=== PATIENT | male | born 1965 | race American Indian/Alaskan Native ===

== ENCOUNTER 2017-04-13 01:55 | Emergency (ER) | payer OTHER ==
[2017-04-13] MEDS ORDERED: FUL-GLO OP ONE (05:02)
--- NOTE | 2017-04-13 05:02 | Emergency Department Report ---
[facility] Chief Complaint: Eye Problems Stated Complaint: BILATERAL EYE IRRITATION Time Seen by Provider: 04/13/17 04:44 Side: Bilateral Severity: moderate Symptoms: Yes Eye Itching, Yes Eye Redness, Yes Mucous Drainage, No Purulent Drainage, No Blurred Vision, No Preceding URI, No H/O Allergic Rhinitis, No Contact Lens Use, No Trauma, No Fever, No Headache Other History: 51-year-old male past medical history hypertension presents with approximately 6-7 days of bilateral eye irritation conjunctival redness and foreign body sensation. Patient states that dust blew into his eyes approximate 6 days ago and he has had progressive watery tearing from I slight mucoid discharge and irritation in both eyes slightly worse on left than right. Patient's overall vision is intact denies contact lens use. Denies fever or chills. ED Review of Systems ROS: Stated complaint: BILATERAL EYE IRRITATION Other details as noted in HPI Constitutional: denies: chills, fever Eyes: eye pain, vision change (blurry vision left eye worsenign x6 days). denies: eye discharge ENT: denies: ear pain, throat pain Respiratory: denies: cough, shortness of breath, wheezing Cardiovascular: denies: chest pain, palpitations Endocrine: no symptoms reported Gastrointestinal: denies: abdominal pain, nausea, diarrhea Genitourinary: denies: urgency, dysuria Musculoskeletal: denies: back pain, joint swelling, arthralgia Skin: denies: rash, lesions Neurological: denies: headache, weakness, paresthesias Psychiatric: denies: anxiety, depression Hematological/Lymphatic: denies: easy bleeding, easy bruising ED Past Medical Hx - Past Medical History Previous Medical History?: No - Surgical History Past Surgical History?: No - Social History Smoking Status: Current Every Day Smoker Substance Use Type: Alcohol - Medications Home Medications: Home Medications Medication Instructions Recorded Confirmed Last Taken Type Pilocarpine 2% [Isopto Carpine] 1 drops OU ONCE #1 bottle 04/13/17 Unknown Rx Timolol 0.5% [Timoptic] 1 drops OP BID #1 bottle 04/13/17 Unknown Rx Tobramycin 0.3% [Tobrex] 1 drop OD Q4H #1 bottle 04/13/17 Unknown Rx [facility] Exam - Exam General: Vital signs noted. No distress. Alert and acting appropriately. Eye Exam: Left Injection, Left Chemosis, Left Fluorescein Uptake, Both EOMI, Neither Eye Foreign Body, Neither Lid Foreign Body HEENT: No Nasal Congestion, No Pharyngeal Erythema Lungs: Yes Clear Lung Sounds, Yes Good Air Exchange, No Wheezes, No Stridor, No Cough, No Nasal Flaring, No Retractions, No Use of Accessory Muscles ED Course Vital Signs 04/13/17 02:28 Temperature 98.3 F Pulse Rate 77 Respiratory 20 Rate Blood Pressure 165/104 O2 Sat by Pulse 98 Oximetry ED Medical Decision Making - Medical Decision Making A/P: Concern for increased intraocular pressure, possible acute angle glaucoma 1-case discussed with Dr. Lopez on-call fiction and nonfiction writer prose at [facility] as per our discussion I will give patient pilocarpine and some low drops immediately and immediately discharge patient to follow up with Dr. Lopez urgently within the next 1-2 hours. Patient agrees verbally that upon discharge he will immediately go to Dr. Lopez's eye clinic on [address] [facility]. I provided the patient with directions and direct contact information for Dr. Lopez so that he can receive full ophthalmologic evaluation. As per Dr. Lopez if patient is found to have acutely elevated intraocular pressure upon his examination he can immediately treat acute angle glaucoma and office with his equipment. The patient agrees to immediately go to Dr. Lopez's office upon discharge, this conversation was witnessed by inspector general Yara. 2-I informed of the clinical plan before discharge 3-I gave patient prescription's instructions and gave him bottles of pilocarpine and timolol as instructed by Dr. Lopez 4- further management to be continued by Dr. Lopez upon evaluation upon arrival of the patient to his office Critical care attestation.: If time is entered above; I have spent that time in minutes in the direct care of this critically ill patient, excluding procedure time. 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 Lopez's eye clinic on [address] [facility] [facility] [facility] [address] Patient understood the instructions and agreed to go directly there upon discharge to be evaluated by on-call fiction and nonfiction writer prose Dr. Lopez. Patient given instructions on how to use pilocarpine drops and atenolol drops. Patient given instructions on dosing. Prescriptions: Pilocarpine 2% [Isopto Carpine] 1 drops OU ONCE #1 bottle Timolol 0.5% [Timoptic] 1 drops OP BID #1 bottle Tobramycin 0.3% [Tobrex] 1 drop OD Q4H #1 bottle Referrals: SHEY LOPEZ MD [Staff Physician] - 3-5 Days [facility] [Provider Group] - 3-5 Days Forms: Work/School Release Form(ED) Time of Disposition: 06:12
[2017-04-13] MEDS ORDERED: TIMOPTIC OU ONE (06:00)
[2017-04-13] MEDS ORDERED: ISOPTO CARPINE OU ONE (06:00)
[2017-04-13 06:30] VITALS: BP 179/110
== END 2017-04-13 06:35 | disposition home or self-care (01) ==
LOC: ED 01:55
DX: H40.052 Ocular hypertension, left eye (principal); H57.12 Ocular pain, left eye; F17.200 Nicotine dependence, unspecified, uncomplicated

== ENCOUNTER 2017-06-16 00:17 | Inpatient (IN) | payer SELFPAY ==
[2017-06-16] MEDS ORDERED: NACL 0.9% 1000 ML 1,000 ML IV ONE (00:20)
[2017-06-16] MEDS ORDERED: HEPARIN 10,000 UNITS/10 ML IV ONE (00:20)
[2017-06-16] MEDS ORDERED: BRILINTA PO ONE (00:21)
[2017-06-16] MEDS ORDERED: HEPARIN ONE (00:22)
[2017-06-16] MEDS ORDERED: HEPARIN/ 0.45% NACL-25,000 UNIT/500 ML 25,000 UNIT/500 ML BAG ONE (00:22)
[2017-06-16] MEDS ORDERED: PLAVIX ONE (00:23)
--- NOTE | 2017-06-16 00:26 | Emergency Department Report ---
HPI - General Time Seen by Provider: 06/16/17 00:20 - HPI HPI: 51-year-old male presents to the emergency department by EMS from home with complaint of midsternal chest pain/pressure has been going on for about the last hour. He is a tobacco smoker but otherwise denies any medical conditions. He does not have a primary care physician or chainstitch zipper setter. He received a full dose aspirin in route with EMS. EMS sent and a EKG that showed concern for septal and/or anterior ST elevation AZ and a code STEMI was called. Patient says he's been dealing with a chest cold for the past week and has been taking NyQuil for her. ED Past Medical Hx - Social History Smoking Status: Current Every Day Smoker Substance Use Type: Alcohol - Medications Home Medications: Home Medications Medication Instructions Recorded Confirmed Last Taken Type Pilocarpine 2% [Isopto Carpine] 1 drops OU ONCE #1 bottle 04/13/17 Unknown Rx Timolol 0.5% [Timoptic] 1 drops OP BID #1 bottle 04/13/17 Unknown Rx Tobramycin 0.3% [Tobrex] 1 drop OD Q4H #1 bottle 04/13/17 Unknown Rx ED Review of Systems ROS: Stated complaint: STEMI Other details as noted in HPI Comment: All other systems reviewed and negative Constitutional: chills. denies: fever Eyes: denies: eye pain, eye discharge, vision change ENT: denies: ear pain, throat pain Respiratory: denies: cough, shortness of breath Cardiovascular: chest pain. denies: palpitations Gastrointestinal: denies: abdominal pain, vomiting Genitourinary: denies: urgency, dysuria Musculoskeletal: denies: back pain, joint swelling, arthralgia Skin: denies: rash, lesions Neurological: denies: headache, weakness, paresthesias Physical Exam - Physical Exam Physical Exam: GENERAL: The patient is well-developed well-nourished. HENT: Normocephalic. Atraumatic. Patient has moist mucous membranes. EYES: Extraocular motions are intact. Pupils equal reactive to light bilaterally. NECK: Supple. Trachea is midline. CHEST/LUNGS: Clear to auscultation. There is no respiratory distress noted. HEART/CARDIOVASCULAR: Regular. There is no tachycardia. There is no murmur. ABDOMEN: Abdomen is soft, nontender. Patient has normal bowel sounds. There is no abdominal distention. SKIN: Skin is warm and dry. NEURO: The patient is awake, alert, and oriented. The patient is cooperative. The patient has no focal neurologic deficits. The patient has normal speech. MUSCULOSKELETAL: There is no tenderness or deformity. There is no limitation range of motion. There is no evidence of acute injury. ED Course - Consultations Consultation #1: I spoke to the consular officer mail distribution clerk, Dr. Watson, who is aware of the concern for ST elevation AZ and is on his way in to bring the patient to the [facility]. 06/16/17 00:25 ED Medical Decision Making - Lab Data Result diagrams: 06/16/17 00:23 - EKG Data -: EKG Interpreted by Me EKG shows normal: sinus rhythm, axis, intervals, QRS complexes, ST-T waves ( there is ST elevations in 2 leads V1 and V2 with reciprocal depressions to the inferior leads concerning for a septal and/or anterior AZ) Rate: normal - EKG Data When compared to previous EKG there are: previous EKG unavailable Interpretation: acute AZ - Radiology Data Radiology results: image reviewed interpreted by me: Chest x-ray does not show any acute process. There are no pleural effusions, obvious pneumonia and there is no pneumothorax. - Medical Decision Making Patient presented with an EKG that appeared consistent with a anterior AZ and this was confirmed with EKG done here. He was given Plavix and heparin bolus and drip. Chest x-ray does not show any acute process. Labs are starting to come back. The patient has been transported over to the [facility] and then will be admitted to the ICU by either the cardiology service or the hospitalist. Vital signs stable with some hypertension. - Differential Diagnosis AZ, costochondritis, PE, pneumonia Critical Care Time: Yes Critical care time in (mins) excluding proc time.: 20 Critical care attestation.: If time is entered above; I have spent that time in minutes in the direct care of this critically ill patient, excluding procedure time. Critical care time spent on this patient during his initial evaluation, reevaluation, ordering and interpretations of labs and EKG and imaging, discussion with the chainstitch zipper setter and discussion with the patient himself. Critical Care Time: 20 minutes ED Disposition Clinical Impression: Acute coronary syndrome STEMI (ST elevation myocardial infarction) Qualifiers: Involved coronary artery: unspecified coronary artery Qualified Code(s): I21.3 - ST elevation (STEMI) myocardial infarction of unspecified site Chest pain Qualifiers: Chest pain type: unspecified Qualified Code(s): R07.9 - Chest pain, unspecified Hypertension Qualifiers: Hypertension type: essential hypertension Qualified Code(s): I10 - Essential ( primary) hypertension Disposition: OP ADMIT IP TO THIS HOSP Is pt being admited?: Yes Condition: Fair Instructions: Chest Pain (ED), Hypertension (ED) Time of Disposition: 00:52
[2017-06-16] MEDS ORDERED: PLAVIX PO ONE (00:30)
[2017-06-16 00:34] LABS: Hematocrit 47.8 % (35.5-45.6); Hemoglobin 16.1 gm/dl (11.8-15.2); Mean Corpuscular HGB Conc 34 % (32-34); Mean Corpuscular Hemoglobin 29 pg (28-32); Mean Corpuscular Volume 86 fl (84-94); Platelet Count 150 K/mm3 (140-440); Red Blood Count 5.57 M/mm3 (3.65-5.03); Red Cell Distribution Width 14.5 % (13.2-15.2); White Blood Count 8.2 K/mm3 (4.5-11.0)
[2017-06-16 00:44] LABS: INR 0.87 (0.87-1.13)
[2017-06-16 00:45] LABS: Partial Thromboplastin Time 27.6 Sec. (24.2-36.6)
[2017-06-16 00:51] LABS: Alanine Aminotransferase 42 units/L (7-56); Albumin 4.7 g/dL (3.9-5); Albumin/Globulin Ratio 1.6 %; Alkaline Phosphatase 75 units/L (35-129); Anion Gap 24 mmol/L; BUN/Creatinine Ratio 11; Blood Urea Nitrogen 14 mg/dL (9-20); Calcium 9.8 mg/dL (8.4-10.2); Carbon Dioxide 21 mmol/L (22-30); Chloride 100.1 mmol/L (98-107); Glucose 93 mg/dL (75-100); Potassium 3.7 mmol/L (3.6-5.0); Sodium 141 mmol/L (137-145); Total Protein 7.6 g/dL (6.3-8.2)
[2017-06-16] MEDS ORDERED: HEPARIN 10,000 UNITS/10 ML ONE (00:54)
[2017-06-16] MEDS ORDERED: XYLOCAINE 2% INFILTRATI ONE (00:54)
[2017-06-16] MEDS ORDERED: HEPARIN/NS 5000 UNIT/500ML(CATH LAB) 1,500 ML IR ONE (00:54)
[2017-06-16] MEDS ORDERED: NITROGLYCERIN SYRINGE 0 ML ONE (00:54)
[2017-06-16] MEDS ORDERED: CALAN ONE ×2 (00:54→01:09)
[2017-06-16] MEDS ORDERED: NACL 0.9% 1000 ML 1,000 ML ONE (00:55)
[2017-06-16] MEDS ORDERED: VERSED ONE (00:55)
[2017-06-16] MEDS ORDERED: SUBLIMAZE ONE (00:55)
[2017-06-16] MEDS ORDERED: HEPARIN/ 0.45% NACL-25,000 UNIT/500 ML 25,000 UNIT/500 ML BAG IV SCH (01:00)
[2017-06-16] MEDS ORDERED: TRIDIL DRIP 50MG/250ML 50 MG/250 ML BOTTLE ONE (01:09)
[2017-06-16] MEDS ORDERED: TRIDIL DRIP 50MG/250ML 50 MG/250 ML BOTTLE IV ONE (01:37)
[2017-06-16] MEDS ORDERED: COZAAR PO ONE (01:54)
--- NOTE | 2017-06-16 01:54 | XRay Report ---
FINAL REPORT EXAM: XR CXR CLINICAL INDICATIONS: CP FINDINGS: Single frontal view of the chest was acquired. The heart is normal in size. There is some left basilar linear scar versus atelectasis, but otherwise the lungs appear clear. The pulmonary vasculature is within normal limits. IMPRESSION: LEFT LATERAL BASILAR LINEAR SCAR VERSUS ATELECTASIS. OTHERWISE, NO ACTIVE DISEASE IN THE CHEST
[2017-06-16] MEDS ORDERED: NACL 0.9% 1000 ML 1,000 ML IV SCH (02:00)
[2017-06-16] MEDS ORDERED: ATIVAN IV ONE (02:23)
[2017-06-16 03:17] LABS: Basophils % (Manual) 0 % (0.0-1.8); Blastocytes % (Manual) 0 %; Eosinophils % (Manual) 0 % (0.0-4.3)
[2017-06-16 03:19] LABS: Anisocytosis 1+; Diff Status Complete; Platelet Estimate Consistent w Auto
--- NOTE | 2017-06-16 03:38 | History and Physical Report ---
CARDIOLOGY CONSULTATION HISTORY OF PRESENT ILLNESS: The patient is a 51-year-old -[place] gentleman who is having chest pains at least for last 1 week and probably more and he is planning to come to the doctor for last one week; however, this evening while he went to his brother's house, when driving back, he started having anterior chest pain associated with nausea, shortness of breath. It was severe. Hence, paramedics were called and EKG was performed, which shows sinus rhythm and mild ST elevations of 1 mm in V1 and V2 with minor ST-T changes in the inferolateral leads consistent with acute injury. Hence, the patient was brought to the catheterization laboratory on an emergency basis as a part of the STEMI protocol. Subsequently, he underwent cardiac catheterization, which revealed a small apical infarct; however, anterior wall and septum are moving very well with normal ejection fraction. The patient was noted to have severe lesions in the LAD, diagonal and RCA; however, MADAY 3 flow noted in all the vessels. Considering wall motion was normal and MADAY 3 flow was noted and lesions are complex for intervention, it was decided to try aggressive medical therapy. The patient's symptoms markedly improved after starting IV nitroglycerin in the Emergency Room and blood pressure is improved. His chest pain is markedly improved. It was decided to continue medical therapy and consider aortocoronary bypass surgery. The patient will be admitted to CCU with treatment for acute coronary syndrome. The patient was not on any medical therapy in the past. No history of hypertension or diabetes mellitus. He is not taking any medications except some medication for cold recently. ALLERGIES: None known. SOCIAL HISTORY: He smokes 5-6 cigarettes for last many years and also drinks beer and liquor. Does not use any drugs. The patient lives with his irish for last 9 years and he says he has 12 children and 31 grandchildren. The patient works for a [employer] company and he has injury to the left arm, presently on disability. REVIEW OF SYSTEMS: The patient is having chest pains for the last many months, it was last 1 week and severe at the time of presentation. Denied any history of hypertension, diabetes mellitus, pulmonary or renal problems. No history of strokes or seizures. No history of pulmonary emboli. No history of DVT. Denied any fever, cough, and chills. No changes in the bowel habits. PHYSICAL EXAMINATION: GENERAL: The patient complaining of chest pain. VITAL SIGNS: Blood pressure is 170/116. The patient is in mild sinus tachycardia. The patient was started on IV heparin and IV nitroglycerin. NECK: Supple, no JVD. HEART: Regular, probably S4, no S3, no significant murmurs. LUNGS: Clear. ABDOMEN: Benign. EXTREMITIES: Without edema. NEUROLOGIC: Alert, oriented x 3. FINAL IMPRESSION: 1. Acute coronary syndrome with very mild ST elevations in leads V1 and V2 and coronary angiography showing very good LV function with no wall motion abnormalities in the area of LAD, septum and anterior wall are moving well. Ejection fraction is preserved with small apical infarct. However, the patient also was noted to have chronic disease in the RCA with collaterals from the LCA. At this time, plan is to continue aggressive medical therapy considering patient has MADAY 3 flow and consider revascularization by Surgery. 2. Hypertension, undiagnosed. 3. Chronic smoking. 4. Alcohol use. At this time, the patient is hemodynamically stable. Blood pressure is elevated. He will be continued on aspirin, IV heparin, IV nitroglycerin in addition to starting on beta cassandra and losartan and atorvastatin 80 mg a day. We will hold off Plavix or other antiplatelet agents except for aspirin with the view the patient is going to be sent for bypass surgery. 5. The patient's chest pain markedly improved . Blood pressure is better controlled. The patient will be monitored in CCU. I discussed with the patient's . JOB# [id number] JACE/GONZÁLEZ YORK
--- NOTE | 2017-06-16 06:03 | Cardiac Catherization Report ---
CARDIAC CATHETERIZATION CLINICAL INFORMATION: The patient is a 51-year-old -[place] gentleman with no previous cardiac history, started having severe chest pain prior to coming to the Emergency Room. EKG showed mild [address] elevations in leads V1 and V2 with Q-waves in the same leads. Also, mild ST depressions noted in the inferolateral leads. These are suggestive of acute injury, hence brought to the catheterization laboratory on an emergency basis. History is obtained from the patient and his fiancee, who she is living with for last 9 years. The patient started having severe chest pains for last 1 week, even though he is having some chest pains before the pains. The patient is planning to see doctor for the last one week, but did not see him and today, the pain is worse, hence paramedics were called and the above EKG changes were noted. Hence brought to the catheterization as a part of the STEMI protocol. DESCRIPTION OF PROCEDURE: The patient was taken to the catheterization laboratory on an emergency basis, prepared in a standard fashion with cleaning the right wrist and right groin using chlorhexidine solution and sterile drapes were applied. The patient was sedated with IV Versed and fentanyl. Right radial artery puncture was made using 21-gauge arterial puncture needle. 6-Wallisian sheath was introduced. The patient received 5 mg of intra-arterial verapamil and 3000 units of intravenous heparin. The patient is already on IV heparin. Subsequently, underwent coronary angiography and left ventriculogram. Left coronary angiograms were obtained using EBU 6-Wallisian guiding catheter and right coronary angiography was performed using JR4 guiding catheter. Subsequently, left ventriculogram was performed using hand injection with the JR4 guiding catheter. At the end of the procedure, catheter and sheath were removed. Following findings were noted: Left ventriculogram done in QUINN and AZERI projection shows brisk movement of entire anterior wall septum and mild hypokinesis of the inferior wall, along with small area of akinesis in the apex. Overall, ejection fraction was felt to be around 55% to 60%. Mitral regurgitation could not be evaluated. LEFT CORONARY ARTERY: Arises normally from left coronary cusp. Left main is very short, immediately dividing into LAD and circumflex. LAD shows smooth severe narrowing starting at the proximal LAD extending into the mid LAD involving origin of medium sized diagonal branch. This lesion is severe sometimes reaching in certain areas to 90% in severity in diameter. Mid LAD and distal LAD, large vessel curving around at the apex without significant disease. Diagonal branch itself is medium sized vessel without significant disease. MADAY 3 flow was noted in all the vessels. Circumflex artery showed a marginal branch, which showed 50% smooth lesion at the ostium. This is right dominant vessel. Right coronary artery arises normally from right coronary cusp. However, there is a very severe irregular lesion approaching 80% to 90% involving the proximal, mid, and distal LAD. However, the distal RCA, PDA and LV branches are seen filling retrograde on LCA injection. FINAL IMPRESSION: 1. Normal sized left ventricle with normal contractility with small apical infarct except for small apical akinesis. Rest of the ventricle is moving very well. Ejection fraction is preserved. 2. Severe lesions in the proximal and mid LAD involving the origin of diagonal branch in addition to excellent collaterals to the distal dominant RCA on LCA injection and long severe lesion in the proximal and mid RCA. There is 50% lesion in the marginal branch. At this time, the patient is presenting with acute coronary syndrome with mild ST changes considering the patient has MADAY 3 flow along with normal wall motion abnormality in the septum and anterior wall and considering the complex anatomy, it was felt the patient would better be served by revascularization with surgery. However, we will stabilize him with aggressive medical therapy. He is not on any medical therapy. His blood pressure is not under control. While in the catheterization laboratory, his pain markedly improved with IV heparin and IV nitroglycerin. His blood pressure also improved. The patient will be monitored closely in the CCU and will be transferred for aortocoronary bypass surgery on an elective basis. Findings were explained to the patient and , they understand. JOB# [id number] JACE/GONZÁLEZ YORK
[2017-06-16] MEDS ORDERED: LOPRESSOR PO SCH (10:00)
[2017-06-16] MEDS ORDERED: ECOTRIN PO SCH (10:00)
[2017-06-16] MEDS ORDERED: Fluarix Quad 2017-2018(36 MOS+ IM ONE (12:00)
--- NOTE | 2017-06-16 12:09 | Consultation ---
History of Present Illness Consult date: 06/16/17 Requesting physician: MAUREEN BAKER Reason for consult: other (STEMI) History of present illness: PULMONARY/CCM CONSULT NOTE (Full dictation # ) Please see dictated notes for full details Medications and Allergies Allergies Allergy/AdvReac Type Severity Reaction Status Date / Time No Known Allergies Allergy Verified 04/13/17 02:28 Home Medications Medication Instructions Recorded Confirmed Last Taken Type Pilocarpine 2% [Isopto Carpine] 1 drops OU ONCE #1 bottle 04/13/17 06/16/17 2 Days Ago Rx ~06/14/17 Timolol 0.5% [Timoptic] 1 drops OP BID #1 bottle 04/13/17 06/16/17 2 Days Ago Rx ~06/14/17 Tobramycin 0.3% [Tobrex] 1 drop OD QHS 06/16/17 06/16/17 2 Days Ago History ~06/14/17 Active Meds: Active Medications Aspirin (Ecotrin) 325 mg PO QDAY TEA Last Admin: 06/16/17 09:14 Dose: 325 mg Atorvastatin Calcium (Lipitor) 80 mg PO QHS [facility] Heparin Sodium/Sodium Chloride (Heparin/ 0.45% Nacl-25,000 Unit/500 Ml) 25,000 unit in 500 mls @ 20 mls/hr IV TITRATE TEA; 1,000 UNITS/HR PRN Reason: Protocol Last Titration: 06/16/17 11:20 Dose: 900 units/hr, 18 mls/hr Nitroglycerin/Dextrose (Tridil Drip 50mg/250ml) 50 mg in 250 mls @ 3 mls/hr IV TITR ONE; 10 MCG/MIN PRN Reason: Protocol Stop: 06/19/17 12:56 Last Titration: 06/16/17 03:25 Dose: 20 mcg/min, 6 mls/hr Sodium Chloride (Nacl 0.9% 1000 Ml) 1,000 mls @ 100 mls/hr IV DIRECT TEA Last Admin: 06/16/17 04:56 Dose: 100 mls/hr Metoprolol Tartrate (Lopressor) 50 mg PO BID TEA Last Admin: 06/16/17 09:14 Dose: 50 mg Physical Examination Vital signs: Vital Signs Pulse Resp 83 26 H 06/16/17 00:16 06/16/17 00:16 Results - Laboratory Findings CBC and BMP: 06/16/17 00:23 06/16/17 00:23 PT/INR, D-dimer PT 12.3 Sec. (12.2-14.9) 06/16/17 00:23 INR 0.87 (0.87-1.13) 06/16/17 00:23 Abnormal lab findings: Abnormal Labs 06/16/17 06/16/17 06/16/17 00:23 00:23 05:46 RBC 5.57 H Hgb 16.1 H Hct 47.8 H Lymphocytes % (Manual) 37.0 H Monocytes % (Manual) 10.0 H Heparin Anti-Xa Level Carbon Dioxide 21 L Troponin T 6.340 H* D 06/16/17 05:46 RBC Hgb Hct Lymphocytes % (Manual) Monocytes % (Manual) Heparin Anti-Xa Level 0.71 H Carbon Dioxide Troponin T
[2017-06-16 14:48] VITALS: BP 139/95
--- NOTE | 2017-06-16 14:52 | Progress Note ---
Assessment and Plan Acute coronary syndrome with TIMI3 flow in LAD,dx and RCA with severe LAD/ dominant RCA disease with preserved EF and small apical akinesis. Consodering extent of CAD,was recommended CABG electively,stabilized with medical therapy. Being transferred to [facility] for CABG, who accepted patient.Discussed withpatient and fiance,aggreable with plan. Subjective Date of service: 06/16/17 Principal diagnosis: acute coronary syndrome Interval history: Patient without chest pain,on iv NTG and iv heparin,in addition to B cassandra.c/ o of pain at radial site. Objective Vital Signs Temp Pulse Resp Resp BP Pulse Ox 06/16/17 12:23 98.1 F 06/16/17 12:21 93 H 21 144/85 96 06/16/17 12:11 90 144/85 97 06/16/17 12:01 97 H 17 144/85 96 06/16/17 12:00 98.1 F 98 06/16/17 11:51 102 H 19 146/89 96 06/16/17 11:41 90 11 L 146/89 97 06/16/17 11:31 93 H 10 L 146/89 96 06/16/17 11:21 90 14 146/89 97 06/16/17 11:11 102 H 13 146/89 95 06/16/17 11:01 96 H 20 146/89 95 06/16/17 10:51 109 H 20 147/87 95 06/16/17 10:41 94 H 20 147/87 96 06/16/17 10:31 81 17 147/87 97 06/16/17 10:21 86 17 147/87 99 06/16/17 10:11 78 18 147/87 98 06/16/17 10:01 80 9 L 147/87 96 06/16/17 10:00 99 06/16/17 09:51 94 H 18 131/84 97 06/16/17 09:41 72 15 131/84 99 06/16/17 09:31 80 20 131/84 96 06/16/17 09:21 76 19 150/98 94 06/16/17 09:14 82 150/98 06/16/17 09:11 80 12 150/98 97 06/16/17 09:00 68 14 159/86 97 06/16/17 08:51 93 H 13 131/84 99 17 08:41 81 15 131/84 98 1617 08:31 93 H 13 131/84 98 17 08:21 97 H 15 131/84 98 1617 08:11 87 16 131/84 98 17 08:01 92 H 9 L 131/84 98 1617 08:00 98.1 F 06/16/17 07:58 100 17 07:51 87 17 140/87 98 17 07:41 95 H 21 140/87 98 17 07:31 92 H 12 140/87 97 17 07:21 87 12 140/87 99 17 07:11 86 16 140/87 97 17 07:01 89 17 140/87 96 06/16/17 07:00 87 12 140/87 99 06/16/17 06:51 97 H 19 148/88 93 17 06:41 86 17 148/88 97 17 06:31 87 16 148/88 97 17 06:30 18 99 06/16/17 06:21 83 17 148/88 97 1617 06:11 86 20 159/86 97 17 06:01 93 H 14 159/86 98 17 06:00 81 18 159/86 99 06/16/17 05:51 92 H 16 159/86 97 1617 05:41 89 17 159/86 98 17 05:31 93 H 17 159/86 96 17 05:21 87 16 159/86 97 17 05:11 83 17 159/86 97 06/16/17 05:01 92 H 20 159/86 96 17 04:51 99 H 22 159/86 96 06/16/17 04:50 98.0 F 81 18 163/99 99 1617 04:41 80 16 163/99 99 1617 04:31 82 16 163/99 98 1617 04:21 83 17 157/100 97 1617 04:20 81 17 163/99 97 17 04:11 84 19 157/100 97 06/16/17 04:01 100 H 14 157/100 97 06/16/17 03:51 88 15 163/99 98 06/16/17 03:50 81 17 163/99 97 06/16/17 03:41 81 17 163/99 97 06/16/17 03:31 87 17 163/99 97 06/16/17 03:21 89 14 152/97 93 06/16/17 03:20 97.9 F 81 17 163/99 97 06/16/17 03:11 90 16 155/96 96 06/16/17 03:07 96 H 155/96 06/16/17 03:01 90 15 155/96 97 06/16/17 03:00 20 99 06/16/17 02:51 90 14 159/96 96 06/16/17 02:50 81 17 163/99 97 06/16/17 02:41 88 15 96 06/16/17 02:38 90 12 97 06/16/17 02:35 81 17 163/99 97 06/16/17 02:20 97.9 F 81 17 163/99 97 06/16/17 00:42 18 100 06/16/17 00:41 81 20 170/104 100 06/16/17 00:40 89 17 170/104 99 06/16/17 00:39 82 24 170/104 100 06/16/17 00:37 89 14 170/104 100 06/16/17 00:35 87 14 170/104 100 06/16/17 00:33 95 H 16 170/104 100 06/16/17 00:31 84 19 170/104 100 06/16/17 00:30 84 22 170/104 99 06/16/17 00:29 85 29 H 155/122 100 06/16/17 00:27 89 18 100 06/16/17 00:25 80 20 100 06/16/17 00:24 98 F 83 18 170/104 100 06/16/17 00:23 89 22 100 06/16/17 00:21 78 25 H 100 06/16/17 00:19 75 21 100 06/16/17 00:18 87 21 99 06/16/17 00:16 83 26 H - Physical Examination General: Appears Well, No Apparent Distress HEENT: Positive: PERRL Neck: Positive: neck supple, trachea midline Cardiac: Positive: Reg Rate and Rhythm Lungs: Positive: clear to auscultation Abdomen: Negative: Organomegaly Skin: Negative: Rash Extremities: Present: normal - Labs and Meds Cardiac Enzymes 06/16/17 Range/Units 00:23 AST 23 (5-40) units/L Coagulation 06/16/17 Range/Units 00:23 PT 12.3 (12.2-14.9) Sec. INR 0.87 (0.87-1.13) APTT 27.6 (24.2-36.6) Sec. Lipids 06/16/17 Range/Units 05:46 Triglycerides 84 (2-149) mg/dL Cholesterol 170 (50-199) mg/dL HDL Cholesterol 49 (40-59) mg/dL Cholesterol/HDL Ratio 3.46 % CBC 06/16/17 Range/Units 00:23 WBC 8.2 (4.5-11.0) K/mm3 RBC 5.57 H (3.65-5.03) M/mm3 Hgb 16.1 H (11.8-15.2) gm/dl Hct 47.8 H (35.5-45.6) % Plt Count 150 (140-440) K/mm3 Comprehensive Metabolic Panel 06/16/17 Range/Units 00:23 Sodium 141 (137-145) mmol/L Potassium 3.7 (3.6-5.0) mmol/L Chloride 100.1 (98-107) mmol/L Carbon Dioxide 21 L (22-30) mmol/L BUN 14 (9-20) mg/dL Creatinine 1.3 (0.8-1.5) mg/dL Glucose 93 (75-100) mg/dL Calcium 9.8 (8.4-10.2) mg/dL AST 23 (5-40) units/L ALT 42 (7-56) units/L Alkaline Phosphatase 75 (35-129) units/L Total Protein 7.6 (6.3-8.2) g/dL Albumin 4.7 (3.9-5) g/dL - Imaging and Cardiology Cardiac cath: other (cath early 06/16/2017 showed severe proximal./mid LAD disease with MADAY 3 flow and severe long proximal/mid RCA lesions with excellent collaterals to distal RCA from LCA,50% ostial Om lesion with small apical area of akinesis with preserved EF.) - Telemetry EKG Rhythm: Sinus Rhythm
--- NOTE | 2017-06-19 12:53 | Discharge Summary ---
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 Martinez Notified:: Dr. Martinez Phone number called:: [phone] Was contact made?: Yes If yes, spoke with:: Dr. Martinez Time called:: 03:40 Primary care physician: GROUP INSURANCE SPECIALIST Hospitalization Condition: Fair Pertinent studies: LHC - see report Procedures: LHC - see report Hospital course: Acute coronary syndrome with TIMI3 flow in LAD,dx and RCA with severe LAD/ dominant RCA disease with preserved EF and small apical akinesis. Considering extent of CAD,was recommended CABG electively,stabilized with medical therapy. Being transferred to [facility] for CABG, who accepted patient.Discussed with patient and fiance,agreeable with plan. Disposition: [id number]/[id number] SHRT-TRM GEN HOSP IP - Discharge Diagnoses (1) Acute coronary syndrome Status: Acute (2) CAD (coronary artery disease) Status: Chronic (3) Tobacco use Status: Chronic (4) Hypertension Status: Chronic Qualifiers: Hypertension type: essential hypertension Qualified Code(s): I10 - Essential (primary) hypertension Core Measure Documentation - Palliative Care Palliative Care/ Comfort Measures: Not Applicable Exam - Constitutional Vitals: Temp Pulse Resp BP Pulse Ox 98.1 F 88 14 139/95 99 06/16/17 12:23 06/16/17 14:21 06/16/17 14:21 06/16/17 14:21 06/16/17 14:21 Plan Follow up with: PRIMARY CARE, [Primary Care Provider] - 3-5 Days
== END 2017-06-16 14:45 | disposition short-term general hospital (02) | DRG 282 ==
LOC: ED 00:17 → CC1 01:41
PROVIDERS: ADMIT Internal Medicine; ATTEND Internal Medicine
PROC: 4A023N7 Measurement of Cardiac Sampling and Pressure, Left Heart, Percutaneous Approach (ICD-10-PCS; principal; 2017-06-16)
PROC: B2111ZZ Fluoroscopy of Multiple Coronary Arteries using Low Osmolar Contrast (ICD-10-PCS; 2017-06-16)
PROC: B2151ZZ Fluoroscopy of Left Heart using Low Osmolar Contrast (ICD-10-PCS; 2017-06-16)
DX: I21.3 ST elevation (STEMI) myocardial infarction of unspecified site (principal); I24.9 Acute ischemic heart disease, unspecified; I10 Essential (primary) hypertension; F17.210 Nicotine dependence, cigarettes, uncomplicated; I25.10 Atherosclerotic heart disease of native coronary artery without angina pectoris
CPT/HCPCS: 36415; 71010; 80053; 80061; 84484; 85007; 85025; 85347; 85520; 85610; 85730; 90686; 93005; 93010; 93458; 94760; 96374; C1769; C1887; C1894; J1644; J2060; J2250; J3010; J7030; Q9967

== ENCOUNTER 2019-02-15 02:38 | Emergency (ER) | payer SELFPAY ==
[2019-02-15] MEDS ORDERED: ASPIRIN PO ONE (03:28)
[2019-02-15 03:56] LABS: Basophils % (Auto) 0.4 % (0.0-1.8); Eosinophils % (Auto) 0.7 % (0.0-4.3); Hematocrit 49.6 % (35.5-45.6); Hemoglobin 16.6 gm/dl (11.8-15.2); Lymphocytes # (Auto) 2.4 K/mm3 (1.2-5.4); Lymphocytes % (Auto) 39.7 % (13.4-35.0); Mean Corpuscular HGB Conc 33 % (32-34); Mean Corpuscular Volume 87 fl (84-94); Monocytes # (Auto) 0.9 K/mm3 (0.0-0.8); Monocytes % (Auto) 15.9 % (0.0-7.3); Platelet Count 130 K/mm3 (140-440); Red Cell Distribution Width 14.9 % (13.2-15.2)
--- NOTE | 2019-02-15 04:02 | XRay Report ---
CHEST 1 VIEW 3:49 AM INDICATION / CLINICAL INFORMATION: Chest Pain. COMPARISON: 06/16/2017. FINDINGS: SUPPORT DEVICES: None. HEART / MEDIASTINUM: There is a median sternotomy. The heart size is normal with a left ventricular c onfiguration. There is mild aortic tortuosity without aneurysm. LUNGS / PLEURA: There is minimal linear scarring in the left lower lung. The lungs are otherwise laura r. No pneumothorax. ADDITIONAL FINDINGS: There is chronic deformity of the right second and third ribs. IMPRESSION: No acute findings. Signer Name: Bryce Jarrell MD Signed: 02/15/2019 3:58 AM Workstation Name: [id number]
[2019-02-15 04:15] LABS: BUN/Creatinine Ratio 12; Blood Urea Nitrogen 14 mg/dL (9-20); Calcium 9.1 mg/dL (8.4-10.2); Hemolysis Index 7
[2019-02-15] MEDS ORDERED: TORADOL IM ONE (05:13)
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
[2019-02-15 06:51] VITALS: BP 157/97
== END 2019-02-15 06:51 | disposition home or self-care (01) ==
LOC: ED 02:38
DX: R07.89 Other chest pain (principal); M79.601 Pain in right arm; I10 Essential (primary) hypertension; Z98.890 Other specified postprocedural states; V49.49XA Driver injured in collision with other motor vehicles in traffic accident, initial encounter; Y93.89 Activity, other specified; Y92.410 Unspecified street and highway as the place of occurrence of the external cause; Y99.8 Other external cause status
CPT/HCPCS: 36415; 71045; 80048; 84484; 85025; 93005; 93010; 96372; 99284; J1885

== ENCOUNTER 2019-10-28 22:52 | Emergency (ER) | payer SELFPAY ==
[2019-10-28] MEDS ORDERED: LIDOCAINE (2%) 20 MG/1 ML VIAL 20 ML MDV INFILTRATI STA (23:29)
[2019-10-28] MEDS ORDERED: LIDOCAINE (2%) 20 MG/1 ML VIAL 20 ML MDV INFILTRATI ONE (23:30)
--- NOTE | 2019-10-29 00:58 | Emergency Department Report ---
- General Chief Complaint: Wound/Laceration Stated Complaint: LT HAND INJURY Time Seen by Provider: 10/28/19 23:29 Source: patient Mode of arrival: Ambulatory Limitations: No Limitations - History of Present Illness -: hour(s), This evening Location: other Extremity Location: Left: Hand (Second and third phalanges) Place: home Context: accidental, sharp object use (Was cutting fish with a fillet knife accidentally sliced his finger in the process resulting in excessive bleeding) Associated Symptoms: none - Related Data Home Medications Medication Instructions Recorded Confirmed Last Taken Tobramycin 0.3% [Tobrex] 1 drop OD QHS 06/16/17 06/16/17 2 Days Ago ~06/14/17 Previous Rx's Medication Instructions Recorded Last Taken Type Pilocarpine 2% [Isopto Carpine] 1 drops OU ONCE #1 bottle 04/13/17 2 Days Ago Rx ~06/14/17 Timolol 0.5% [Timoptic] 1 drops OP BID #1 bottle 04/13/17 2 Days Ago Rx ~06/14/17 Cyclobenzaprine [Flexeril] 10 mg PO TID PRN #20 tablet 02/15/19 Unknown Rx HYDROcodone/APAP 5-325 [[place] 1 each PO Q6HR PRN #10 tablet 02/15/19 Unknown Rx 5/325] Ibuprofen [Motrin 800 MG tab] 800 mg PO Q8HR PRN #10 tablet 02/15/19 Unknown Rx Chlorhexidine Gluconate [Rosenda-Hex] 5 ml TP BID #240 liquid 10/29/19 Unknown Rx cephALEXin [Keflex] 500 mg PO Q6HR #28 capsule 10/29/19 Unknown Rx Allergies Allergy/AdvReac Type Severity Reaction Status Date / Time No Known Allergies Allergy Verified 04/13/17 02:28 ED Review of Systems ROS: Stated complaint: LT HAND INJURY Other details as noted in HPI Comment: All other systems reviewed and negative ED Past Medical Hx - Past Medical History Hx Hypertension: Yes Hx Congestive Heart Failure: No Hx Diabetes: No Hx Asthma: No Hx COPD: No Additional medical history: High Cholesterol - Surgical History Hx Open Heart Surgery: Yes (3 vessels) - Social History Smoking Status: Never Smoker Substance Use Type: Alcohol - Medications Home Medications: Home Medications Medication Instructions Recorded Confirmed Last Taken Type Pilocarpine 2% [Isopto Carpine] 1 drops OU ONCE #1 bottle 04/13/17 06/16/17 2 Days Ago Rx ~06/14/17 Timolol 0.5% [Timoptic] 1 drops OP BID #1 bottle 04/13/17 06/16/17 2 Days Ago Rx ~06/14/17 Tobramycin 0.3% [Tobrex] 1 drop OD QHS 06/16/17 06/16/17 2 Days Ago History ~06/14/17 Cyclobenzaprine [Flexeril] 10 mg PO TID PRN #20 tablet 02/15/19 Unknown Rx HYDROcodone/APAP 5-325 [[place] 1 each PO Q6HR PRN #10 tablet 02/15/19 Unknown Rx 5/325] Ibuprofen [Motrin 800 MG tab] 800 mg PO Q8HR PRN #10 tablet 02/15/19 Unknown Rx Chlorhexidine Gluconate [Rosenda-Hex] 5 ml TP BID #240 liquid 10/29/19 Unknown Rx cephALEXin [Keflex] 500 mg PO Q6HR #28 capsule 10/29/19 Unknown Rx ED Physical Exam - General Limitations: No Limitations General appearance: alert, in no apparent distress - Head Head exam: Present: atraumatic, normocephalic - Eye Eye exam: Present: normal appearance, PERRL Pupils: Present: normal accommodation - ENT ENT exam: Present: normal exam, normal orophraynx, mucous membranes moist - Neck Neck exam: Present: normal inspection, full ROM. Absent: tenderness - Respiratory Respiratory exam: Present: normal lung sounds bilaterally. Absent: respiratory distress, wheezes, stridor, chest wall tenderness - Cardiovascular Cardiovascular Exam: Present: regular rate, normal rhythm. Absent: systolic murmur, diastolic murmur, rubs, gallop - GI/Abdominal GI/Abdominal exam: Present: soft, normal bowel sounds - Rectal Rectal exam: Present: deferred - Extremities Exam Extremities exam: Present: other (Linear laceration involving the second and third phalanges full thickness skin with preserved flexion range of motion) - Expanded Upper Extremity Exam Left Elbow exam: Present: normal inspection, full ROM Forearm Wrist exam: Present: normal inspection, full ROM Hand Wrist exam: Present: laceration Hand L/R Front: 1 - Positive: laceration - Back Exam Back exam: Present: normal inspection - Neurological Exam Neurological exam: Present: alert, oriented X3 - Psychiatric Psychiatric exam: Present: normal affect, normal mood - Skin Skin exam: Present: warm, dry, intact, normal color. Absent: rash ED Course Vital Signs 10/28/19 10/28/19 10/29/19 22:56 22:59 01:00 Temperature 97.8 F Pulse Rate 107 H 106 H Respiratory 18 18 18 Rate Blood Pressure 209/119 [Left] O2 Sat by Pulse 100 100 Oximetry 10/29/19 10/29/19 10/29/19 01:40 01:48 02:40 Temperature Pulse Rate 87 87 Respiratory 18 18 18 Rate Blood Pressure 189/121 184/109 [Left] O2 Sat by Pulse 96 97 Oximetry - Procedure Description Procedures done: Area was prepped and draped in sterile fashion anesthesia achieved with 2% lidocaine with no epinephrine 4-0 Vicryl was placed in simple operative fashion to achieve hemostasis times 2 and 3-0 Prolene was placed in simple interrupted fashion to the scene to achieve good wound approximation x6. Hemostasis was achieved and estimated blood loss was less than 5 cc Critical care attestation.: If time is entered above; I have spent that time in minutes in the direct care of this critically ill patient, excluding procedure time. ED Disposition Clinical Impression: Finger laceration Clinical Impression: (Ruled Out): STEMI (ST elevation myocardial infarction) Disposition: - TO HOME OR SELFCARE Is pt being admited?: No Does the pt Need Aspirin: No Condition: Stable Instructions: Suture Care (ED), Finger Laceration (ED) Additional Instructions: Please follow-up with your primary care provider or the listed provider in 10 days to be evaluated for possible suture removal keep wound clean with antibacterial soap and water as we discussed and utilize antibiotics as discussed Prescriptions: Chlorhexidine Gluconate [Rosenda-Hex] 5 ml TP BID #240 liquid cephALEXin [Keflex] 500 mg PO Q6HR #28 capsule Referrals: PRIMARY CARE, [Primary Care Provider] - 3-5 Days
[2019-10-29] MEDS ORDERED: oxyCODONE /ACETAMINOPHEN 5-325MG TAB ONE (01:47)
[2019-10-29] MEDS ORDERED: oxyCODONE /ACETAMINOPHEN 5-325MG TAB PO ONE (01:48)
[2019-10-29 02:41] VITALS: BP 184/109
== END 2019-10-29 02:40 | disposition home or self-care (01) ==
LOC: ED 22:52
DX: S61.211A Laceration without foreign body of left index finger without damage to nail, initial encounter (principal); S61.213A Laceration without foreign body of left middle finger without damage to nail, initial encounter; W26.0XXA Contact with knife, initial encounter; I10 Essential (primary) hypertension; E78.00 Pure hypercholesterolemia, unspecified; Z79.899 Other long term (current) drug therapy; Z95.818 Presence of other cardiac implants and grafts; Y93.89 Activity, other specified; Y92.89 Other specified places as the place of occurrence of the external cause; Y99.8 Other external cause status
CPT/HCPCS: 99282